=== PATIENT | female | born 1980 | race African-American/Black ===

== ENCOUNTER 2019-02-23 15:12 | Emergency (ER) | payer MEDICAID ==
[~2019-02-23] VITALS: Ht 167.6 cm; Wt 97.5 kg
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
[2019-02-23] MEDS ORDERED: CIPR500T94 PO (17:00)
[2019-02-23 17:03] VITALS: BP 144/109
== END 2019-02-23 17:07 | disposition home or self-care (01) ==
LOC: ER 15:12
DX: M79.671 Pain in right foot (principal); G43.909 Migraine, unspecified, not intractable, without status migrainosus; J45.909 Unspecified asthma, uncomplicated; F17.210 Nicotine dependence, cigarettes, uncomplicated; Z90.710 Acquired absence of both cervix and uterus; Z91.018 Allergy to other foods
CPT/HCPCS: 73630; 99284

== ENCOUNTER 2020-10-25 13:03 | Emergency (ER) | payer MEDICAID ==
[~2020-10-25] VITALS: Ht 168.9 cm; Wt 103.0 kg
[~2020-10-25 13:03] MED LIST: CIPR500T94 PO
[2020-10-25] MEDS ORDERED: IV NORMAL SALINE 1000ML BAG 1,000 ML IV ONE (14:00)
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
[2020-10-25 14:09] LABS: BILIRUBIN,URINE NEGATIVE (NEG); CLARITY,URINE CLEAR; COLOR,URINE YELLOW; NITRITE,URINE NEGATIVE (NEG); PH,URINE 5.5 (<5.0-8.0); PROTEIN,URINE NEGATIVE (NEG-TRACE)
[2020-10-25 14:16] LABS: RBC,URINE >40 /HPF (0-2)
[2020-10-25 14:17] LABS: BACTERIA,URINE FEW /HPF (0-FEW)
--- NOTE | 2020-10-25 14:18 | RAD ---
EXAM: Chest, single view. HISTORY: Dizziness. COMPARISON: None. FINDINGS: A frontal view of the chest is obtained. There is no infiltrate, pleural effusion or pneumo thorax. There is suspected left lower lobe atelectasis. The heart is normal in size. IMPRESSION: Suspected left lower lobe atelectasis. Electronically signed by: Rebecca Poole MD (10/25/2020 2:16 PM) [id number]
[2020-10-25 14:23] LABS: BARBITURATES NEG (NEG); BENZODIAZEPINES NEG (NEG); CANNABINOIDS POS (NEG); COCAINE POS (NEG); METHADONE NEG (NEG); OPIATES NEG (NEG); PHENCYCLIDINE NEG (NEG)
[2020-10-25 14:27] LABS: AMPHETAMINE/METHAMPHETAMINE POS (NEG)
--- NOTE | 2020-10-25 14:56 | RAD ---
EXAM: Head CT without contrast. HISTORY: Dizziness. TECHNIQUE: Computed tomographic images of the head were obtained without contrast. *One or more of the following individualized dose reduction techniques were utilized for this examina tion: 1. Automated exposure control. 2. Adjustment of the mA and/or kV according to patient size. 3. Use of iterative reconstruction technique. COMPARISON: None. FINDINGS: There is no acute or subacute extra-axial or intraparenchymal hemorrhage. There is no mass effect or midline shift. There is no hydrocephalus. The bryant-white matter differentiation pattern is intact. The orbits and visualized paranasal sinuses mastoid air cells are unremarkable. There is mild diffuse calvarial thickening. This can be physiolog ic or due to chronic seizure medication use. IMPRESSION: No acute intracranial findings. Electronically signed by: Rebecca Poole MD (10/25/2020 2:54 PM) [id number]
[2020-10-25 14:59] LABS: BASO # 0.1 x10^3/uL (0.0-0.2); BASO % 1 % (0-3); EOS # 0.1 x10^3/uL (0.0-0.7); EOS % 2 % (0-3); HEMATOCRIT 37.8 % (36.0-47.0); HEMOGLOBIN 12.8 g/dL (12.0-15.5); LYMPH % 39 % (24-48); MEAN CORPUSCULAR HEMOGLOBIN 32 pg (25-35); MEAN CORPUSCULAR HGB CONC 34 g/dL (31-37); MEAN CORPUSCULAR VOLUME 95 fL (79-100); MONO % 14 % (0-9); NEUT # 3.4 x10^3/uL (1.8-7.7); NEUT % 45 % (31-73); PLATELET COUNT 289 x10^3/uL (140-400); RED BLOOD COUNT 3.96 x10^6/uL (3.50-5.40); RED CELL DISTRIBUTION WIDTH 13.9 % (11.5-14.5); WHITE BLOOD COUNT 7.7 x10^3/uL (4.0-11.0)
[2020-10-25 15:19] LABS: CALCIUM 8.5 mg/dL (8.5-10.1); CREATININE 0.9 mg/dL (0.6-1.0); GFR 84.3; POTASSIUM 4.2 mmol/L (3.5-5.1)
[2020-10-25 15:30] LABS: ALBUMIN 3.5 g/dL (3.4-5.0); ALBUMIN/GLOBULIN RATIO 1.3 (1.0-1.7); MAGNESIUM 1.9 mg/dL (1.8-2.4); TOTAL BILIRUBIN 0.3 mg/dL (0.2-1.0); TOTAL PROTEIN 6.3 g/dL (6.4-8.2)
[2020-10-25 17:09] VITALS: BP 136/89
--- NOTE | 2020-10-25 18:16 | EKG ---
[facility] [address] [place] [address] Test Date: 2020-10-25 Test Time: 13:42:57 Pat Name: JS NAGY Department: Room: Gender: F Devops Engineer: : 1980 Requested By: BOBBY SINGLETON Order Number: [id number] Reading MD: Measurements Intervals [place] Rate: 83 P: 31 AL: 168 QRS: 27 QRSD: 88 T: 34 QT: 396 QTc: 471 Interpretive Statements SINUS RHYTHM NO SPECIFIC ECG ABNORMALITIES RI6.01 No previous ECG available for comparison
== END 2020-10-25 17:09 | disposition home or self-care (01) ==
LOC: ER 13:03
DX: E86.0 Dehydration (principal); R42 Dizziness and giddiness; F15.90 Other stimulant use, unspecified, uncomplicated; F14.90 Cocaine use, unspecified, uncomplicated; F12.90 Cannabis use, unspecified, uncomplicated; G43.909 Migraine, unspecified, not intractable, without status migrainosus; J45.909 Unspecified asthma, uncomplicated; F17.210 Nicotine dependence, cigarettes, uncomplicated; Z90.710 Acquired absence of both cervix and uterus; Z91.018 Allergy to other foods
CPT/HCPCS: 36415; 70450; 71045; 80053; 80307; 81001; 83690; 83735; 83880; 84443; 84484; 85025; 87086; 93005; 96360; 99285; G0480; J7030

== ENCOUNTER 2020-11-03 06:22 | Emergency (ER) | payer MEDICAID ==
[~2020-11-03] VITALS: Ht 167.6 cm; Wt 104.1 kg
[2020-11-03 07:03] LABS: BILIRUBIN,URINE SMALL (NEG); CLARITY,URINE CLEAR; COLOR,URINE AMBER; NITRITE,URINE NEGATIVE (NEG); PH,URINE 5.5 (<5.0-8.0); PROTEIN,URINE NEGATIVE (NEG-TRACE); UROBILINOGEN,URINE 0.2 mg/dL (0.2 mg/dL)
[2020-11-03 07:06] LABS: U PREG PATIENT NEGATIVE (NEG)
[2020-11-03 07:09] LABS: AMPHETAMINE/METHAMPHETAMINE POS (NEG); BARBITURATES NEG (NEG); BENZODIAZEPINES NEG (NEG); CANNABINOIDS POS (NEG); COCAINE POS (NEG); METHADONE NEG (NEG); OPIATES NEG (NEG); PHENCYCLIDINE NEG (NEG)
[2020-11-03 07:14] LABS: BACTERIA,URINE FEW /HPF (0-FEW)
--- NOTE | 2020-11-03 07:24 | RAD ---
CT MAXILLOFACIAL WITHOUT CONTRAST, CT HEAD AND C-SPINE WO Date: 11/03/2020 6:55 AM Clinical Indication: Pain, fall Comparison: 10/25/2020. Technique: 5 mm axial tomographic images were obtained of the head without contrast. These were view ed on brain and bone windows. Axial helical images of the face were obtained without contrast. Axial and coronal reconstruction was performed. CT imaging of the cervical spine was performed without cont rast. Coronal and sagittal reformatted images were performed. One or more of the following dose reduc tion techniques were utilized: Automated exposure control (AEC), Adjustment of mA and/or kV according to patient size, Use of iterative reconstruction technique such as ASiR, CT scan done according to A SEN and image gently/image wisely CT HEAD FINDINGS: The brain parenchyma is normal in attenuation. No intra- or extra-axial mass or fluid collection. No acute hemorrhage. The ventricles are normal in size, shape, and morphology. The bryant-white matter darius ction is normal. The basilar cisterns are patent. The mastoid air cells are clear. No aggressive osseous lesion or fracture. CT FACE FINDINGS: There is no acute facial bone fracture. Postsurgical changes of ORIF of the symphyseal and left demetrio ymphyseal mandible, and 2 additional screws noted in the alveolar process of the maxilla. The paranasal sinuses are clear. The orbits are normal. The globes are intact. The nasal septum is sl ightly deviated to the right. The ostiomeatal complexes are patent. CT CERVICAL SPINE FINDINGS: Straightening of the cervical lordosis. No acute fracture. No aggressive lytic or blastic osseous les ion. Mild multilevel degenerative disc height loss. No high-grade spinal canal stenosis or neural foramina l narrowing. The thyroid gland is normal. No cervical lymphadenopathy. The visualized aerodigestive tract is unrem arkable. The visualized lung apices are clear. Impression: 1. No acute intracranial process. 2. No acute facial bone fracture. 3. No acute osseous abnormality of the cervical spine. Electronically signed by: Portillo Littlejohn MD (11/03/2020 7:22 AM) [id number]
[2020-11-03 07:25] LABS: BASO % 1 % (0-3); EOS # 0.1 x10^3/uL (0.0-0.7); EOS % 1 % (0-3); HEMATOCRIT 37.8 % (36.0-47.0); HEMOGLOBIN 12.9 g/dL (12.0-15.5); LYMPH # 2.5 x10^3/uL (1.0-4.8); LYMPH % 37 % (24-48); MEAN CORPUSCULAR HEMOGLOBIN 32 pg (25-35); MEAN CORPUSCULAR HGB CONC 34 g/dL (31-37); MEAN CORPUSCULAR VOLUME 95 fL (79-100); MONO # 0.8 x10^3/uL (0.0-1.1); MONO % 12 % (0-9); NEUT # 3.3 x10^3/uL (1.8-7.7); NEUT % 49 % (31-73); PLATELET COUNT 281 x10^3/uL (140-400); RED BLOOD COUNT 3.97 x10^6/uL (3.50-5.40); RED CELL DISTRIBUTION WIDTH 13.4 % (11.5-14.5); WHITE BLOOD COUNT 6.8 x10^3/uL (4.0-11.0)
--- NOTE | 2020-11-03 07:25 | RAD ---
XR CHEST 1V INDICATION: dizziness/fall COMPARISON STUDY: 10/25/2020. FINDINGS: Lungs: Low lung volume. No pulmonary mass or consolidation. The tracheobronchial tree and hilar struc tures are normal. Pleura: No pleural effusion or pneumothorax. Heart and Mediastinum: The cardiomediastinal silhouette is normal. The great vessels of the thorax ar e normal. IMPRESSION: No acute cardiopulmonary process. Electronically signed by: Portillo Littlejohn MD (11/03/2020 7:23 AM) [id number]
--- NOTE | 2020-11-03 07:26 | RAD ---
XR HAND_RIGHT 3 VIEWS, XR RT WRIST 3VIEWS DATE: 11/03/2020 7:11 AM INDICATION: Pain, dizziness/fall COMPARISON: None. FINDINGS: Bones: There is no evidence of acute fracture or dislocation. Joints: The joint spaces are normal. Miscellaneous: None. IMPRESSION: No evidence of acute fracture. Electronically signed by: Portillo Littlejohn MD (11/03/2020 7:24 AM) [id number]
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
[2020-11-03 07:45] LABS: ALBUMIN 3.8 g/dL (3.4-5.0); ALBUMIN/GLOBULIN RATIO 1.4 (1.0-1.7); CALCIUM 8.9 mg/dL (8.5-10.1); CREATININE 0.9 mg/dL (0.6-1.0); GFR 84.3; MAGNESIUM 1.7 mg/dL (1.8-2.4); POTASSIUM 4.2 mmol/L (3.5-5.1); TOTAL BILIRUBIN 0.7 mg/dL (0.2-1.0); TOTAL PROTEIN 6.6 g/dL (6.4-8.2)
[2020-11-03] MEDS ORDERED: HYDROmorphone 2 MG/ML VIAL IVP ONE (07:45)
[2020-11-03 08:22] VITALS: BP 119/93
--- NOTE | 2020-11-03 15:58 | EKG ---
[facility] [address] [place] [address] Test Date: 2020-11-03 Test Time: 06:50:33 Pat Name: JS NAGY Department: Room: Gender: F [employer] Specialist: : 1980 Requested By: SHALA GARCIA Order Number: [id number] Reading MD: Measurements Intervals [place] Rate: 82 P: 26 NH: 152 QRS: 38 QRSD: 86 T: 32 QT: 390 QTc: 459 Interpretive Statements SINUS RHYTHM NORMAL ECG RI6.02 No previous ECG available for comparison
== END 2020-11-03 11:57 | disposition home or self-care (01) ==
LOC: ER 06:22
DX: R82.4 Acetonuria (principal); F19.10 Other psychoactive substance abuse, uncomplicated; G89.29 Other chronic pain; M54.5 Low back pain; R42 Dizziness and giddiness; M79.641 Pain in right hand; M25.531 Pain in right wrist; J45.909 Unspecified asthma, uncomplicated; E78.00 Pure hypercholesterolemia, unspecified; I10 Essential (primary) hypertension; G43.909 Migraine, unspecified, not intractable, without status migrainosus; F17.200 Nicotine dependence, unspecified, uncomplicated; Z91.018 Allergy to other foods; W18.39XA Other fall on same level, initial encounter; Y93.89 Activity, other specified; Y92.89 Other specified places as the place of occurrence of the external cause; Y99.8 Other external cause status
CPT/HCPCS: 36415; 70450; 70486; 71045; 72125; 73110; 73130; 80053; 80307; 81001; 81025; 82962; 83690; 83735; 84484; 85025; 93005; 99285